=== PATIENT | male | born 1940 | race Caucasian/White ===

== ENCOUNTER 2019-08-12 20:44 | Inpatient (IN) | payer OTHER, MEDICAID ==
[~2019-08-12] VITALS: Ht 175.3 cm; Wt 72.6 kg
[2019-08-12 20:44] VITALS: BP_SYST 108
[~2019-08-12 20:44] MED LIST: ACET-2165 PO; ASCO500T20 PO; BISA10SU61 RC; CRAN450C PO; DOCU-144 PO; HYDR-4272 PO; MEMA5TAB PO; MOM PO; MULT-1117 PO; NA P133E41 RC; SSREG SUBCUT; TAMS0.4C96 PO; VITD2000 PO; ZINC220T4 PO; [UNRECOGNIZED DRUG - CODE] PO
[2019-08-12] MEDS ORDERED: ALBU2.5V7 INH (21:19)
[2019-08-12] MEDS ORDERED: CHOL500013 PO (21:20)
[2019-08-12] MEDS ORDERED: CAT.1 PO (21:21)
[2019-08-12] MEDS ORDERED: DOCU-144 PO (21:23)
[2019-08-12] MEDS ORDERED: BISA10SU61 RC (21:25)
[2019-08-12] MEDS ORDERED: ACET-2634 PO (21:27)
[2019-08-12] MEDS ORDERED: AMIN30LI2 PO (21:29)
[2019-08-12] MEDS ORDERED: GLUC1KIT IM (21:31)
[2019-08-12 22:44] LABS: BASOPHILS # (AUTO) 0.1 K/uL (0.0-0.2); BASOPHILS % (AUTO) 0.8 % (0.0-2.0); EOSINOPHILS # (AUTO) 0.4 K/uL (0.0-0.4); EOSINOPHILS % (AUTO) 3.2 % (0.0-4.0); HEMATOCRIT 38.1 % (36-54); HEMOGLOBIN 12.7 g/dL (14.0-18.0); LYMPHOCYTES # (AUTO) 1.9 K/uL (1.0-5.5); LYMPHOCYTES % (AUTO) 16.7 % (20.5-51.5); MEAN CORPUSCULAR HEMOGLOBIN 29 pg (27-31); MEAN CORPUSCULAR HGB CONC 33 % (32-36); MEAN CORPUSCULAR VOLUME 87 fL (79.0-98.0); MONOCYTES # (AUTO) 0.5 K/uL (0.0-1.0); MONOCYTES % (AUTO) 4.3 % (1.7-9.3); NEUTROPHILS # (AUTO) 8.6 K/uL (1.8-7.7); PLATELET COUNT (AUTO) 278 K/uL (130-430); RED BLOOD CELL COUNT(AUTO) 4.39 MIL/uL (4.2-6.2); WHITE BLOOD COUNT (AUTO) 11.4 K/uL (4.8-10.8)
[2019-08-12 23:15] LABS: ALANINE AMINOTRANSFERASE 13 U/L (12-78); ALBUMIN 3.1 g/dL (3.4-4.8); ANION GAP 8 (5-15); ASPARTATE AMINOTRANSFERASE 13 U/L (10-37); CALCIUM 8.5 mg/dL (8.4-11.0); CHLORIDE 102 mmol/L (98-107); CREATININE 0.72 mg/dL (0.55-1.30); GLUCOSE 99 mg/dL (70-99); POTASSIUM 3.9 mmol/L (3.5-5.1); SODIUM SERUM 137 mmol/L (136-145); TOTAL BILIRUBIN 0.4 mg/dL (0.0-1.0); UREA NITROGEN, BLOOD 21 mg/dL (8-21)
[2019-08-12 23:18] LABS: ALCOHOL, BLOOD < 3 mg/dL (<10)
[2019-08-13] MEDS ORDERED: IPRATROPIUM/ALBUTEROL SULFATE 3 ML AMPUL.NEB (DUONEB) INH ONE (01:15)
[2019-08-13] MEDS ORDERED: methylPREDNISolone SOD SUCC 40 MG/ML VIAL IVP ONE ×2 (01:15→12:00)
--- NOTE | 2019-08-13 02:00 | NUR ---
Patient to ER bed 7 to gown for evaluation. Side rails up.
--- NOTE | 2019-08-13 02:05 | NUR ---
Pt came to the ED for chest xray positive for pneumonia yesterday. Reports he has had a cough, sore throat, and rhinorhea. Denies n/v/d or fever. Denies chest pain. No other complaints/injuries noted. Will cont. to monitor.
--- NOTE | 2019-08-13 02:45 | NUR ---
ER at bedside examining patient.
--- NOTE | 2019-08-13 03:00 | NUR ---
Pt resting comfortably in bed, no signs of acute distress. Will cont. to monitor.
--- NOTE | 2019-08-13 03:30 | NUR ---
Called [facility] for bed, unable to take pt .
[2019-08-13] MEDS ORDERED: methylPREDNISolone SOD SUCC/PF 62.5 MG/ML VIAL IVP ONE (03:45)
[2019-08-13] MEDS ORDERED: methylPREDNISolone SOD SUCC/PF 62.5 MG/ML VIAL ONE (03:47)
--- NOTE | 2019-08-13 04:00 | NUR ---
Pt resting comfortably in bed, no signs of acute distress. Will cont. to monitor.
--- NOTE | 2019-08-13 05:30 | NUR ---
Called [facility] for bed, unable to take pt .
--- NOTE | 2019-08-13 05:50 | NUR ---
Patient will be admitted to care of Dr. Grant. Admitted to Tele unit. Pt is currently a hold. Belongings list completed. Complete and up to date summary report printed. SBAR report to be given at bedside with opportunity for questions.
--- NOTE | 2019-08-13 06:00 | NUR ---
PT resting comfortably in bed with tv on, no signs of acute distress. Will cont. to monitor.
--- NOTE | 2019-08-13 07:18 | NUR ---
Medication reconciliation completed with information provided by patients paperwork. Any prior medication reconciliation on file was reviewed and corrected.
--- NOTE | 2019-08-13 07:30 | NUR ---
Patient diaper changed, rolly care done and PT given urinal. Urine specimen collected and sent to lab.
--- NOTE | 2019-08-13 07:30 | NUR ---
Ramiro frank in [facility] - 08/13/19 at 0824 by SDEDTD Patient diaper & rolly care changed and given urinal.
--- NOTE | 2019-08-13 07:53 | NUR ---
Patient will be admitted to care of Dr. Grant. Admitted to Tele unit. Will go to room 124A. Belongings list completed. Complete and up to date summary report printed. SBAR report to be given at bedside with opportunity for questions. Transfer to Tele via ACLS protocol. Licensed nurse present. IV present no signs or symptoms of infiltration.
--- NOTE | 2019-08-13 08:05 | NUR ---
ADMISSION NOTE Received patient from ER via dany, received report from [facility]ILY [employer]. Patient admitted with diagnosis of COPD EXACERBATION. Patient oriented to hospital routine, call light, toileting and safety-patient verbalized understanding.
[2019-08-13 08:15] VITALS: BP_SYST 107
--- NOTE | 2019-08-13 08:55 | NUR ---
Pulmo consult called: for Dr. Aragon, regarding acute COPD exacerbation, ordered by Dr. Grant, spoke with Shelly at exchange.
[2019-08-13 09:22] LABS: BASOPHILS # (AUTO) 0.1 K/uL (0.0-0.2); BASOPHILS % (AUTO) 0.5 % (0.0-2.0); EOSINOPHILS % (AUTO) 0.2 % (0.0-4.0); HEMATOCRIT 40.3 % (36-54); HEMOGLOBIN 13.6 g/dL (14.0-18.0); LYMPHOCYTES # (AUTO) 0.9 K/uL (1.0-5.5); LYMPHOCYTES % (AUTO) 7.9 % (20.5-51.5); MEAN CORPUSCULAR HEMOGLOBIN 29 pg (27-31); MEAN CORPUSCULAR HGB CONC 34 % (32-36); MEAN CORPUSCULAR VOLUME 87 fL (79.0-98.0); MONOCYTES # (AUTO) 0.1 K/uL (0.0-1.0); MONOCYTES % (AUTO) 0.8 % (1.7-9.3); NEUTROPHILS # (AUTO) 9.8 K/uL (1.8-7.7); NEUTROPHILS % (AUTO) 90.6 % (40.0-70.0); PLATELET COUNT (AUTO) 283 K/uL (130-430); RED BLOOD CELL COUNT(AUTO) 4.66 MIL/uL (4.2-6.2); RED CELL DISTRIBUTION WIDTH 13.9 % (9.0-15.0); WHITE BLOOD COUNT (AUTO) 10.8 K/uL (4.8-10.8)
[2019-08-13 09:31] LABS: ALANINE AMINOTRANSFERASE 18 U/L (12-78); ALBUMIN 3.2 g/dL (3.4-4.8); ANION GAP 9 (5-15); ASPARTATE AMINOTRANSFERASE 12 U/L (10-37); CALCIUM 8.8 mg/dL (8.4-11.0); CHLORIDE 101 mmol/L (98-107); CREATININE 0.77 mg/dL (0.55-1.30); GLUCOSE 124 mg/dL (70-99); POTASSIUM 3.7 mmol/L (3.5-5.1); SODIUM SERUM 137 mmol/L (136-145); TOTAL BILIRUBIN 0.5 mg/dL (0.0-1.0); UREA NITROGEN, BLOOD 20 mg/dL (8-21)
[2019-08-13 09:47] VITALS: BP_SYST 107
--- NOTE | 2019-08-13 09:50 | NUR ---
Note Came to pt's room at 0812am, pt requested RN come in later as pt wanted to eat his breakfast and then answer questions. Vital signs were taken and RN now returned and did admission assessment at this time. Pt had tele unit attached on admission to floor by sec accountant Sai. Pt is forgetful and has history of dementia, sometimes there were gaps of remembering when answering questions on admission assessment. Call light within reach.
[2019-08-13 10:42] LABS: BILIRUBIN,URINE NEGATIVE (NEGATIVE); BLOOD, URINE NEGATIVE (NEGATIVE); CLARITY/URINE CLEAR (CLEAR); COLOR,URINE YELLOW (YELLOW); GLUCOSE,URINE NEGATIVE (NEGATIVE); KETONES,URINE NEGATIVE (NEGATIVE); LEUKOCYTE ESTERASE ,URINE 1+ (NEGATIVE); NITRITE, URINE POSITIVE (NEGATIVE); PROTEIN URINE NEGATIVE (NEGATIVE); UROBILINOGEN,URINE 0.2 (0.2-1.0)
[2019-08-13 11:06] LABS: BACTERIA,URINE MANY /HPF (None Seen); MUCUS,URINE 1+ /LPF (None Seen); RBC,URINE 0-3 /HPF (0-3)
[2019-08-13 12:06] VITALS: BP_SYST 87
--- NOTE | 2019-08-13 13:00 | NUR ---
Note Pt resting in bed, denies any needs at this time. IV in left forearm intact and patent. Tele unit attached and intact. Pt was checked on q1' and PRN all shift. No SOB/resp distress or pain/discomfort noted at this time. Call light within reach. No needs noted at this time.
[2019-08-13] MEDS: IPRATROPIUM/ALBUTEROL SULFATE 3 ML AMPUL.NEB (DUONEB) INH SCH ×2 (13:50→20:06)
[2019-08-13 16:14] VITALS: BP_SYST 118; BP_SYST 133
--- NOTE | 2019-08-13 18:35 | NUR ---
Note Pt was checked on q1' and PRN all shift for needs and care. Pt's tele unit attached and intact all shift. No SOB/resp distress or chest pain/discomfort was noted. No needs noted. Call light within reach. IV in left forearm intact and patent.
--- NOTE | 2019-08-13 19:25 | NUR ---
CHANGE OF SHIFT; PT. AWAKE, ALERT, FORGETFUL. FOLOOWS SIMPLE COMMANDS. ON FALL RISK PRECAUTIONS. CALL LIGHT AT BEDSIDE. WILL ASSESS LATER.
[2019-08-13 20:30] VITALS: BP_SYST 113
--- NOTE | 2019-08-13 20:30 | NUR ---
NOTES: VS checked. moves all extremities but weak. on hall monitor and shows sinus rhythm. skin abrasions, dry on upper arms. both feet very drys skin. IV lock on left forearm. bed alarm on, call light within reach.
[2019-08-13] MEDS: methylPREDNISolone SOD SUCC 40 MG/ML VIAL IVP SCH (21:05)
[2019-08-13] MEDS: LEVOFLOXACIN 500 MG/D5W 100 ML IV SCH ×2 (21:05→23:27)
--- NOTE | 2019-08-13 21:30 | NUR ---
NOTES: due medications given. requesting for coffee. miriam him will bring later and agreed.
--- NOTE | 2019-08-14 00:04 | NUR ---
NOTES: pt. been requesting for coffee and given. pt. incontinent of urine. rolly care done, kept dry. repositioned.IV lock on left forearm.
[2019-08-14 00:30] VITALS: BP_SYST 116
[2019-08-14] MEDS: IPRATROPIUM/ALBUTEROL SULFATE 3 ML AMPUL.NEB (DUONEB) INH SCH ×3 (00:56→20:54)
--- NOTE | 2019-08-14 03:00 | NUR ---
NOTES: pt. checked and sleeping comfortably, bed alarm on. condition observed. continue to monitor.
--- NOTE | 2019-08-14 05:00 | NUR ---
NOTES; colostomy bag drained with soft brown stool, with lots of air. incontinent of urine, able to help turn. continue to monitor and observed. had one episode of HR drop on low 50's for seconds and went back up to 70's.
--- NOTE | 2019-08-14 06:45 | NUR ---
CLOSING NOTES; pt. still sleeping, no distress. IV site patent. colostomy bag with soft brown stool. pt. wearing diaper, does not want to remove, will endorse to day shift. pretty comfortable with his blanket. call light at bedside . on fall risk precautions, bed alarm on.
[2019-08-14 07:41] VITALS: BP_SYST 109
--- NOTE | 2019-08-14 07:41 | NUR ---
Opening note patient resting in bed, a/ox3, reoriented to place, time and event, patient has periods of forgetfulness, patient denies pain, assessment complete, colostomy noted to left abdomen, bag is intact, stoma is 100% pink, IV line is patent and infusing well, educated the patient friction saw operator light system and plan of care, he verbalizes understanding at this time, also educated the patient on use of diapers and potential risk for skin breakdown, he verbalized understanding, and states," I want to use diapers please," patient has no other needs at this time, bed in lowest position, two side rails up, bed alarm on, call light within reach, fall and aspiration precautions in place.
[2019-08-14] MEDS: methylPREDNISolone SOD SUCC 40 MG/ML VIAL IVP SCH (08:31)
--- NOTE | 2019-08-14 08:34 | NUR ---
Medication patient resting in bed, awake, finishing breakfast, aspiration precautions in place, educated the patient on scheduled medication uses and potential side effects, he verbalized understanding, IV line is patent and infusing well, no other needs at this time, continuing to monitor, bed in lowest position, two side rails up, call light within reach, fall and aspiration precautions in place.
--- NOTE | 2019-08-14 10:40 | NUR ---
Nutrition Update Margarito Scale 15 noted. Pt admitted for acute exacerbation of COPD. Diet: 2 gm Na BMI: 22.2 kg/m2 RD to follow per nutrition care standards.
--- NOTE | 2019-08-14 10:47 | NUR ---
RN rounds patient resting in bed, eyes closed, breathing is even and unlabored, no signs of distress, continuing to monitor, bed in lowest position, three side rails up, call light within reach, fall and aspiration precautions in place.
--- NOTE | 2019-08-14 12:00 | NUR ---
DCPA and SS contact: WELL LOGGING MUD ANALYSIS CAPTAIN met with Pt. at bedside for DCPA. Pt. was able to give minimal information, not well oriented, unable to provide any meaningful information. Per collateral with JUAN Rico at [facility], Pt has been a resident in this facility since 09/2017 his own decision maker, not on a conservatorship. Emergency contact is listed as daughter Shelly Hanna . Pt. has [facility] part A and B, and [facility]. PCP is Dr. Grant . Pt. is bed bound, utilizes wheelchair occasionally, full assist with ADLs. Pt. has his bed available at [facility] DCP would be to return to this facility. No SS concern at this time. CM, SS and DCP to remain available as needed.
[2019-08-14 12:28] VITALS: BP_SYST 117
--- NOTE | 2019-08-14 12:40 | NUR ---
RN rounds patient resting in bed, awake, eating lunch, aspiration precautions in place, patient colostomy bag with air, expelled air at this time, colostomy is still intact, patient has no other needs at this time, continuing to monitor, bed in lowest position, three side rails up, bed alarm on, call light within reach, fall and aspiration precautions in place.
--- NOTE | 2019-08-14 13:00 | NUR ---
Dr. Rudy perez informed of need for DVT prophylaxis, MD to put in orders.
--- NOTE | 2019-08-14 14:37 | NUR ---
RN rounds patient resting in bed, denies pain, denies shortness of breath, provided with tissues per his request, no other needs at this time, bed in lowest position, three side rails up, bed alarm on, call light within reach, fall and aspiration precautions in place.
--- NOTE | 2019-08-14 16:20 | NUR ---
RN rounds patient resting in bed, denies pain, denies shortness of breath, no other needs at this time, bed in lowest position, three side rails up, bed alarm on, call light within reach, fall and aspiration precautions in place.
[2019-08-14 16:29] VITALS: BP_SYST 118
--- NOTE | 2019-08-14 18:20 | NUR ---
Closing note patient resting in bed, awake, denies pain, eating dinner, aspiration precautions in place, all needs met, will endorse report NOC shift nurse, bed in lowest position, two side rails up, call light within reach, fall and aspiration precautions in place.
--- NOTE | 2019-08-14 19:06 | NUR ---
CONSULT DR. ZIEGLER ALREADY SEEN THE PT
--- NOTE | 2019-08-14 19:25 | NUR ---
CHANGE OF SHIFT; pt. awake, watching tv. no complaints. no distress. on fall risk precautions, sitting at the edge of the bed when received. call light within reach.
[2019-08-14 20:15] VITALS: BP_SYST 110
--- NOTE | 2019-08-14 20:15 | NUR ---
NOTES: VS checked. moves all extremities, maintain bed rest. IV lock on left forearm. colostomy intact with pasty brownish stool. still wearing diaper per pt. request. cardiac pattern borderline sinus miguel angel/sinus rhythm. bed alarm, fall risk precaution. instructed to call if help needed.
[2019-08-14] MEDS: PREDNISONE 20 MG TABLET PO SCH (20:16)
[2019-08-14] MEDS: LEVOFLOXACIN 500 MG/D5W 100 ML IV SCH (21:43)
--- NOTE | 2019-08-14 22:00 | NUR ---
NOTES: due meds given. repositioned in bed, gets incontinent,rolly care and kept dry, instructed if he could use urinal but pt. is forgetful. pt. needs attended.
[2019-08-15 00:10] VITALS: BP_SYST 100
--- NOTE | 2019-08-15 00:15 | NUR ---
NOTES: pt. sleeping when made rounds. condition observed. bed alarm on.
[2019-08-15] MEDS: IPRATROPIUM/ALBUTEROL SULFATE 3 ML AMPUL.NEB (DUONEB) INH SCH ×3 (01:00→14:10)
--- NOTE | 2019-08-15 03:00 | NUR ---
NOTES: made rounds, pt. sleeping, continue to monitor. on fall risk, bed alarm on.
--- NOTE | 2019-08-15 06:00 | NUR ---
NOTES; pt, been sleeping most of the night. colostomy intact and IV site.
--- NOTE | 2019-08-15 06:45 | NUR ---
CLOSING NOTES; still asleep, in no distress, fall precautions observed. for further care and assistance.will endorse to day shift.
--- NOTE | 2019-08-15 08:00 | NUR ---
SLEEPING WITH NO COMPLAINTS
[2019-08-15] MEDS: PREDNISONE 20 MG TABLET PO SCH ×2 (09:51→21:07)
--- NOTE | 2019-08-15 10:00 | NUR ---
APPETITE FOR BREAKFAST GOOD
[2019-08-15 11:20] VITALS: BP_SYST 144
--- NOTE | 2019-08-15 12:00 | NUR ---
COLOSTOMY FUNCTIONG WITH SMALL AMOUNT OF BROWN STOOL
[2019-08-15 12:15] VITALS: BP_SYST 117
--- NOTE | 2019-08-15 14:00 | NUR ---
DOZING QUIETLY IN BED
--- NOTE | 2019-08-15 16:00 | NUR ---
REMAINS IN SAME CONDITION
[2019-08-15 16:36] VITALS: BP_SYST 121
[2019-08-15 19:45] VITALS: BP_SYST 106
--- NOTE | 2019-08-15 19:45 | NUR ---
INITIAL NOTE AT INITIAL ASSESSMENT, PATIENT IS RESTING IN BED, STABLE, NO SIGNS OF RESPIRATORY DISTRESS. PATIENT VERBALIZES NO PAIN. PLAN OF CARE FOR THE EVENING IS COMMUNICATED WITH THE PATIENT. PATIENT IS SUCCESSFUL IN DEMONSTRATION OF CORRECT USAGE OF CALL LIGHT AT THIS TIME. CALL LIGHT IS PLACED WITHIN REACH OF PATIENT. BED IS LOCKED, ALARMED, AND AT THE LOWEST LEVEL. FALL, SAFETY, ASPIRATION, AND RESPIRATORY PRECAUTIONS WILL BE TAKEN THROUGHOUT THE SHIFT.
[2019-08-15] MEDS: LEVOFLOXACIN 500 MG/D5W 100 ML IV SCH (21:07)
--- NOTE | 2019-08-15 21:45 | NUR ---
HYGIENE CARE NOTE SCHEDULED NIGHT TIME MEDICATIONS ARE GIVEN AT THIS TIME, HYGIENE CARE IS ALSO PROVIDED, FRESH LINENS PROVIDED. PATIENT TOLERATED WELL. CALL LIGHT PLACED WITHIN REACH. BED IS LOCKED, ALARMED, AND AT THE LOWEST LEVEL.
--- NOTE | 2019-08-15 23:45 | NUR ---
NOTE PATIENT IS RESTING IN BED, STABLE, NO SIGNS OF RESPIRATORY DISTRESS. CALL LIGHT IS WITHIN REACH. BED IS LOCKED, ALARMED, AND THE LOWEST LEVEL.
[2019-08-16] VITALS: BP_SYST 115
[2019-08-16] MEDS: IPRATROPIUM/ALBUTEROL SULFATE 3 ML AMPUL.NEB (DUONEB) INH SCH ×4 (00:46→20:52)
--- NOTE | 2019-08-16 01:45 | NUR ---
NOTE PATIENT IS SLEEPING, STABLE, NO SIGNS OF RESPIRATORY DISTRESS. CALL LIGHT IS WITHIN REACH. BED IS LOCKED, ALARMED, AND THE LOWEST LEVEL.
--- NOTE | 2019-08-16 03:45 | NUR ---
NOTE PATIENT IS SLEEPING, STABLE, NO SIGNS OF RESPIRATORY DISTRESS. CALL LIGHT IS WITHIN REACH. BED IS LOCKED, ALARMED, AND THE LOWEST LEVEL.
--- NOTE | 2019-08-16 05:15 | NUR ---
HYGIENE CARE NOTE PATIENT HAD A BOWEL MOVEMENT AND VOID; HYGIENE CARE IS PROVIDED AT THIS TIME, FRESH LINENS PROVIDED. PATIENT TOLERATED WELL. CALL LIGHT PLACED WITHIN REACH. BED IS LOCKED, ALARMED, AND AT THE LOWEST LEVEL.
--- NOTE | 2019-08-16 06:50 | NUR ---
CLOSING NOTE AT THIS TIME, PATIENT IS RESTING IN BED, STABLE, NO SIGNS OF RESPIRATORY DISTRESS. CALL LIGHT IS WITHIN REACH. BED IS LOCKED, AND AT THE LOWEST LEVEL. FALL, SAFETY, AND RESPIRATORY PRECAUTIONS HAVE BEEN IN PLACE THROUGHOUT THE NIGHT. WILL CONTINUE TO MONITOR UNTIL SHIFT REPORT IS GIVEN AT BEDSIDE TO AM NURSE.
[2019-08-16 07:55] VITALS: BP_SYST 98
--- NOTE | 2019-08-16 08:00 | NUR ---
Note Pt sitting on side of bed eating his breakfast. Tele unit attached and intact at this time. LLQ colostomy intact and draining. IV in left forearm intact and patent at this time. No SOB/resp distress or and pain/discomfort noted at this time. Pt denies any needs at this time. Call light within reach.
[2019-08-16] MEDS: PREDNISONE 20 MG TABLET PO SCH ×2 (08:52→20:35)
[2019-08-16 09:23] VITALS: BP_SYST 98
--- NOTE | 2019-08-16 12:00 | NUR ---
Note Pt sitting on side of bed eating his lunch. Pt denies any needs at this time. Call light within reach.
[2019-08-16 12:06] VITALS: BP_SYST 99
[2019-08-16] MEDS ORDERED: ALBUTEROL SULFATE 0.083% 2.5 MG/3 ML VIAL.NEB INH PRN (12:15)
--- NOTE | 2019-08-16 16:00 | NUR ---
Note Pt has been turning and moving in bed all shift for comfort and for meals independently. Pt denies any needs at this time. Call light within reach.
[2019-08-16 16:17] VITALS: BP_SYST 101
--- NOTE | 2019-08-16 18:20 | NUR ---
Note Pt sitting on side of bed eating his dinner. Tele unit attached and intact. Pt was checked on q1' and PRN all shift for needs and care. Pt's IV in left forearm intact and patent. No SOB/resp distress or pain/discomfort was noted. No needs noted. Call light within reach.
[2019-08-16 19:45] VITALS: BP_SYST 115
[2019-08-16] MEDS: MEMANTINE HCL 5 MG TABLET PO SCH (20:35)
[2019-08-16] MEDS: LEVOFLOXACIN 500 MG/D5W 100 ML IV SCH (20:36)
[2019-08-16] MEDS: ACETAMINOPHEN 500 MG TABLET PO PRN (20:42)
--- NOTE | 2019-08-16 23:45 | NUR ---
NOTE PATIENT IS RESTING IN BED, STABLE, NO SIGNS OF RESPIRATORY DISTRESS. CALL LIGHT IS WITHIN REACH. BED IS LOCKED, ALARMED, AND THE LOWEST LEVEL.
[2019-08-17] MEDS: IPRATROPIUM/ALBUTEROL SULFATE 3 ML AMPUL.NEB (DUONEB) INH SCH ×4 (01:42→20:29)
--- NOTE | 2019-08-17 01:45 | NUR ---
NOTE PATIENT IS SLEEPING, STABLE, NO SIGNS OF RESPIRATORY DISTRESS. CALL LIGHT IS WITHIN REACH. BED IS LOCKED, ALARMED, AND THE LOWEST LEVEL.
--- NOTE | 2019-08-17 03:45 | NUR ---
NOTE PATIENT IS SLEEPING, STABLE, NO SIGNS OF RESPIRATORY DISTRESS. CALL LIGHT IS WITHIN REACH. BED IS LOCKED, ALARMED, AND THE LOWEST LEVEL.
--- NOTE | 2019-08-17 05:05 | NUR ---
HYGIENE CARE NOTE HYGIENE CARE IS PROVIDED AT THIS TIME, FRESH LINENS GIVEN. PATIENT TOLERATED WELL. CALL LIGHT PLACED WITHIN REACH. BED IS LOCKED, ALARMED, AND AT THE LOWEST LEVEL.
--- NOTE | 2019-08-17 06:00 | NUR ---
CLOSING NOTE NO CHANGES. PATIENT SLEPT WELL THROUGHOUT THE SHIFT. AT THIS TIME, PATIENT IS RESTING IN BED, STABLE, NO SIGNS OF RESPIRATORY DISTRESS. CALL LIGHT IS WITHIN REACH. BED IS LOCKED, AND AT THE LOWEST LEVEL. FALL, SAFETY, AND RESPIRATORY PRECAUTIONS HAVE BEEN IN PLACE THROUGHOUT THE NIGHT. WILL CONTINUE TO MONITOR UNTIL SHIFT REPORT IS GIVEN AT BEDSIDE TO AM NURSE.
--- NOTE | 2019-08-17 07:35 | NUR ---
INITIAL NOTE PT RESTING, NO ACUTE DISTRESS NOTED, BREATHING EVEN AND UNLABORED. IV SALINE LOCKED. CALL LIGHT WITHIN REACH, BED IN LOW AND LOCKED POSITION WITH BED ALARM ON.
[2019-08-17] MEDS: PREDNISONE 20 MG TABLET PO SCH ×2 (08:45→20:38)
[2019-08-17] MEDS: DOCUSATE SODIUM 100 MG CAPSULE PO SCH (08:45)
[2019-08-17] MEDS: TAMSULOSIN HCL 0.4 MG CAP PO SCH (08:45)
--- NOTE | 2019-08-17 09:35 | NUR ---
RN ROUNDS PT RESTING, NO ACUTE DISTRESS NOTED, BREATHING EVEN AND UNLABORED.
--- NOTE | 2019-08-17 11:30 | NUR ---
CHANGED COLOSTOMY BAG BAG RIPPED, CLEANED PT, CHANGED BAG. PT TOLERATED WELL.
[2019-08-17 12:00] VITALS: BP_SYST 102
--- NOTE | 2019-08-17 13:30 | NUR ---
RN ROUNDS PT SITTING UP AT EDGE OF BED EATING LUNCH. NO CHANGE IN ASSESSMENT.
--- NOTE | 2019-08-17 15:38 | NUR ---
RN ROUNDS PT RESTING, NO ACUTE DISTRESS NOTED, BREATHING EVEN AND UNLABORED.
[2019-08-17 16:23] VITALS: BP_SYST 111
--- NOTE | 2019-08-17 17:30 | NUR ---
RN ROUNDS PT RESTING IN BED, DENIES ANY SOB. PT ON ROOM AIR, TOLERATING WELL. WILL CONTINUE TO MONITOR.
--- NOTE | 2019-08-17 18:38 | NUR ---
CLOSING NOTE PT SITTING AT EDGE OF BED EATING DINNER. IV SALINE LOCKED. DENIES ANY PAIN OR DISCOMFORT. CALL LIGHT WITHIN REACH, BED IN LOW AND LOCKED POSITION WITH BED ALARM ON. ALL NEEDS MET THROUGHOUT SHIFT. WILL CONTINUE TO MONITOR UNTIL PT CARE IS ENDORSED TO FOLDING MACHINE OPERATOR RN.
[2019-08-17 19:45] VITALS: BP_SYST 131
[2019-08-17] MEDS: LEVOFLOXACIN 500 MG/D5W 100 ML IV SCH (20:38)
[2019-08-17] MEDS: MEMANTINE HCL 5 MG TABLET PO SCH (20:38)
[2019-08-17] MEDS: ACETAMINOPHEN 500 MG TABLET PO PRN (20:47)
--- NOTE | 2019-08-17 23:45 | NUR ---
NOTE PATIENT IS RESTING IN BED, STABLE, NO SIGNS OF RESPIRATORY DISTRESS. CALL LIGHT IS WITHIN REACH. BED IS LOCKED, ALARMED, AND THE LOWEST LEVEL.
[2019-08-18] VITALS: BP_SYST 112
[2019-08-18] MEDS: IPRATROPIUM/ALBUTEROL SULFATE 3 ML AMPUL.NEB (DUONEB) INH SCH ×3 (01:00→20:27)
--- NOTE | 2019-08-18 01:45 | NUR ---
HYGIENE CARE NOTE HYGIENE CARE IS ALSO PROVIDED AT THIS TIME, FRESH LINENS GIVEN. PATIENT TOLERATED WELL. CALL LIGHT PLACED WITHIN REACH. BED IS LOCKED, ALARMED, AND AT THE LOWEST LEVEL.
--- NOTE | 2019-08-18 05:05 | NUR ---
NOTE PATIENT IS SLEEPING, STABLE, NO SIGNS OF RESPIRATORY DISTRESS. CALL LIGHT IS WITHIN REACH. BED IS LOCKED, ALARMED, AND THE LOWEST LEVEL.
--- NOTE | 2019-08-18 07:37 | NUR ---
INITIAL NOTE PT RECEIVING BREATHING TREATMENT. PT AWAKE WATCHING TELEVISION. NO ACUTE DISTRESS NOTED. IV SALINE LOCKED. CALL LIGHT WITHIN REACH, BED IN LOW AND LOCKED POSITION WITH BED ALARM ON.
[2019-08-18] MEDS: PREDNISONE 20 MG TABLET PO SCH (09:14)
[2019-08-18] MEDS: DOCUSATE SODIUM 100 MG CAPSULE PO SCH (09:15)
[2019-08-18] MEDS: TAMSULOSIN HCL 0.4 MG CAP PO SCH (09:15)
--- NOTE | 2019-08-18 09:35 | NUR ---
RN ROUNDS EMPTIED OUT COLOSTOMY BAG. STOOL SOFT AND BROWN. PT TOLERATED WELL.
[2019-08-18] MEDS ORDERED: PREDNISONE 20 MG TABLET PO SCH (10:15)
[2019-08-18 11:06] VITALS: BP_SYST 105
--- NOTE | 2019-08-18 11:30 | NUR ---
RN ROUNDS PT RESTING, NO ACUTE DISTRESS NOTED, BREATHING EVEN AND UNLABORED WILL CONTINUE TO MONITOR.
--- NOTE | 2019-08-18 13:40 | NUR ---
RN ROUNDS PT AWAKE, WATCHING TELEVISION, NO ACUTE DISTRESS NOTED, NO CHANGE IN ASSESSMENT.
--- NOTE | 2019-08-18 14:06 | NUR ---
Dietitian Recommendations *Recommend CCHO 2gm Na diet. *Monitor BG levels. Please see Nutritional Assessment for details. RENE, RD
[2019-08-18 15:03] VITALS: BP_SYST 123
--- NOTE | 2019-08-18 16:00 | NUR ---
RN ROUNDS PT RESTING, NO ACUTE DISTRESS NOTED, BREATHING EVEN AND UNLABORED.
--- NOTE | 2019-08-18 18:30 | NUR ---
CLOSING NOTE PT SITTING AT EDGE OF BED EATING DINNER. PT DENIES ANY PAIN OR DISCOMFORT. IV SALINE LOCKED. CALL LIGHT WITHIN REACH, BED IN LOW AND LOCKED POSITION WITH BED ALARM ON. ALL NEEDS MET THROUGH OUT SHIFT. WILL CONTINUE TO MONITOR UNTIL PT CARE IS ENDORSED TO KITCHEN OPERATOR RN.
--- NOTE | 2019-08-18 20:00 | NUR ---
Pt received resting in bed comfortably awoke alert, Tamazight speaking, denies having any pain. Lungs with wheezing and stridor. Abdomen left lateral colotomy bag, with form soft brown bowel.
[2019-08-18] MEDS: LEVOFLOXACIN 500 MG/D5W 100 ML IV SCH (23:27)
[2019-08-18] MEDS: MEMANTINE HCL 5 MG TABLET PO SCH (23:27)
--- NOTE | 2019-08-18 23:30 | NUR ---
Pt incontinent said he was wet and wanted to be changed and was changed vital signs stable. Pt was asked if he needed any thing else, before leaving his room, he said just a warn blanket, and did receive.
[2019-08-19 00:08] VITALS: BP_SYST 104
[2019-08-19 00:34] VITALS: BP_SYST 121
[2019-08-19] MEDS: IPRATROPIUM/ALBUTEROL SULFATE 3 ML AMPUL.NEB (DUONEB) INH SCH ×3 (01:00→13:40)
--- NOTE | 2019-08-19 04:00 | NUR ---
Pt remain resting in bed comfortably with eyes closed respirations even. Pt's bed is in low position with wheels locked call light in reach.
--- NOTE | 2019-08-19 06:34 | NUR ---
Pt remain resting in bed stable, A.M. care done, Colostomy bag changed. Endorsed to day shift staff Rosey. Addendum: 08/19/19 at 0741 by Bertha deportation officer Nurse name Kamla Currie
--- NOTE | 2019-08-19 08:00 | NUR ---
received awake and oriented and in no c/o discomfort.vss resp even and unlabored set up for breakfast.on ra and sats 98%.colostomy intact with small amt brown drainage.lfa sl patent and intact.tele sr.continue to monitor call santizo in place
[2019-08-19] MEDS ORDERED: PREDNISONE 20 MG TABLET PO SCH (09:00)
[2019-08-19] MEDS: DOCUSATE SODIUM 100 MG CAPSULE PO SCH (11:22)
[2019-08-19] MEDS: TAMSULOSIN HCL 0.4 MG CAP PO SCH (11:22)
[2019-08-19 12:38] VITALS: BP_SYST 101
--- NOTE | 2019-08-19 12:42 | NUR ---
Discharge Planning: DCP faxed pt referral to [facility] (f [phone] p [phone]) DCP to follow up Addendum: 08/19/19 at 1454 by Sherly Hogan DP [facility] (f [phone] p [phone]), [facility] ([phone]) Will Call. Patient packet taken to nurse station.
[2019-08-19 14:15] VITALS: BP_SYST 101
[2019-08-19 15:00] VITALS: BP_SYST 118
--- NOTE | 2019-08-19 15:36 | NUR ---
REPORT CALLED TO JUNAID MARTINEZ AT [facility].
[2019-08-19 16:46] VITALS: BP_SYST 121
--- NOTE | 2019-08-19 17:19 | NUR ---
taken for tx to snf by dany pt in no distress.vss.belongings sent with pt.
== END 2019-08-19 17:20 | DRG 178 ==
LOC: SED 20:44 → STU 08-13 05:49
PROVIDERS: ADMIT Internal Medicine; ATTEND Internal Medicine
DX: J69.0 Pneumonitis due to inhalation of food and vomit (principal); J44.0 Chronic obstructive pulmonary disease with (acute) lower respiratory infection; N39.0 Urinary tract infection, site not specified; I13.0 Hypertensive heart and chronic kidney disease with heart failure and stage 1 through stage 4 chronic kidney disease, or unspecified chronic kidney disease; J44.1 Chronic obstructive pulmonary disease with (acute) exacerbation; I50.9 Heart failure, unspecified; L03.019 Cellulitis of unspecified finger; F03.90 Unspecified dementia, unspecified severity, without behavioral disturbance, psychotic disturbance, mood disturbance, and anxiety; R91.1 Solitary pulmonary nodule; N18.9 Chronic kidney disease, unspecified; E11.22 Type 2 diabetes mellitus with diabetic chronic kidney disease; I48.91 Unspecified atrial fibrillation; J20.9 Acute bronchitis, unspecified; N40.0 Benign prostatic hyperplasia without lower urinary tract symptoms; Z93.3 Colostomy status; Z79.899 Other long term (current) drug therapy; Z87.891 Personal history of nicotine dependence
CPT/HCPCS: 36415; 71045; 80053; 81000-TC; 83605; 83880; 84484; 85025; 86710; 87040-TC; 87081; 87086; 93005; 94640; 94760; 96365; 96375; 99285; G0378; G0482; J1030; J1956; J2930; J7512; J7620

== ENCOUNTER 2020-05-08 20:19 | Inpatient (IN) | payer OTHER, MEDICAID, SELFPAY ==
[~2020-05-08] VITALS: Ht 175.3 cm; Wt 77.6 kg
[~2020-05-08 20:19] MED LIST changes: -ACET-2165 PO; +ACET-2634 PO; +ACET325T PO; +ALBU2.5V7 INH; +AMIN30LI2 PO; -ASCO500T20 PO; +CAT.1 PO; +CHOL500013 PO; -CRAN450C PO; +GLUC1KIT IM; -VITD2000 PO; -ZINC220T4 PO; -[UNRECOGNIZED DRUG - CODE] PO
[2020-05-08 20:23] VITALS: BP_SYST 99
--- NOTE | 2020-05-08 20:26 | NUR ---
Placed in room 7 . Placed on mushroom cutter, blood pressure machine and pulse oximeter. To gown for exam. Side rails up. Report given to Alberto MARTINEZ.
--- NOTE | 2020-05-08 20:27 | NUR ---
Patient was BIB by [facility] from [facility] for elevated D-dimer. Pt has colotomy in place. Pt is AAO to person, time and place. Pt does have hx of dementia. Pt has tested positive for Covid 01/15/2020. hx of TIA. Pt denies pain, N/V or fever. No other injuries/complaints per patient at this time.
--- NOTE | 2020-05-08 20:30 | NUR ---
ER Dr. Casey at bedside examining patient.
--- NOTE | 2020-05-08 20:50 | NUR ---
patient was given urinal. pt was able to urinate. Specimen collected and sent to lab.
[2020-05-08 21:25] LABS: BASOPHILS # (AUTO) 0.1 K/uL (0.0-0.2); BASOPHILS % (AUTO) 1.4 % (0.0-2.0); EOSINOPHILS # (AUTO) 0.3 K/uL (0.0-0.4); EOSINOPHILS % (AUTO) 3.2 % (0.0-4.0); HEMATOCRIT 44.2 % (36-54); HEMOGLOBIN 15.1 g/dL (14.0-18.0); LYMPHOCYTES # (AUTO) 2.4 K/uL (1.0-5.5); LYMPHOCYTES % (AUTO) 23.3 % (20.5-51.5); MEAN CORPUSCULAR HEMOGLOBIN 29 pg (27-31); MEAN CORPUSCULAR HGB CONC 34 % (32-36); MEAN CORPUSCULAR VOLUME 84 fL (79.0-98.0); MONOCYTES # (AUTO) 0.7 K/uL (0.0-1.0); MONOCYTES % (AUTO) 6.6 % (1.7-9.3); NEUTROPHILS # (AUTO) 6.9 K/uL (1.8-7.7); NEUTROPHILS % (AUTO) 65.5 % (40.0-70.0); PLATELET COUNT (AUTO) 378 K/uL (130-430); RED BLOOD CELL COUNT(AUTO) 5.23 MIL/uL (4.2-6.2); RED CELL DISTRIBUTION WIDTH 14.4 % (9.0-15.0); WHITE BLOOD COUNT (AUTO) 10.5 K/uL (4.8-10.8)
[2020-05-08 21:26] LABS: BILIRUBIN,URINE NEGATIVE (NEGATIVE); BLOOD, URINE 3+ (NEGATIVE); CLARITY/URINE CLEAR (CLEAR); COLOR,URINE YELLOW (YELLOW); GLUCOSE,URINE NEGATIVE (NEGATIVE); KETONES,URINE NEGATIVE (NEGATIVE); LEUKOCYTE ESTERASE ,URINE 3+ (NEGATIVE); NITRITE, URINE POSITIVE (NEGATIVE); PH,URINE 6.5 (5.0-8.0); PROTEIN URINE TRACE (NEGATIVE); UROBILINOGEN,URINE 0.2 (0.2-1.0)
[2020-05-08 21:28] LABS: ANION GAP 13 (5-15); CALCIUM 8.9 mg/dL (8.4-11.0); CHLORIDE 98 mmol/L (98-107); CREATININE 1.07 mg/dL (0.55-1.30); GLUCOSE 118 mg/dL (70-99); SODIUM SERUM 133 mmol/L (136-145); UREA NITROGEN, BLOOD 35 mg/dL (8-21)
[2020-05-08 21:33] LABS: ALANINE AMINOTRANSFERASE 22 U/L (12-78); ALBUMIN 2.9 g/dL (3.4-4.8); ASPARTATE AMINOTRANSFERASE 16 U/L (10-37); TOTAL BILIRUBIN 0.3 mg/dL (0.0-1.0)
[2020-05-08 21:34] LABS: POTASSIUM 2.6 mmol/L (3.5-5.1)
--- NOTE | 2020-05-08 21:43 | NUR ---
CRITICAL RESULTS POTASSIUM 2.6 MD NOTIFIED
[2020-05-08] MEDS ORDERED: HYDR-4274 PO (22:07)
--- NOTE | 2020-05-08 22:08 | NUR ---
Medication reconciliation completed with information provided by [facility]. Any prior medication reconciliation on file was reviewed and corrected.
[2020-05-08 22:13] LABS: WBC,URINE 20-50 /HPF (0-3)
[2020-05-08 22:15] LABS: BACTERIA,URINE MODERATE /HPF (None Seen)
[2020-05-08] MEDS ORDERED: POTASSIUM CHLORIDE 20 MEQ TAB.PRT.SR PO ONE (22:15)
[2020-05-08] MEDS ORDERED: KCL 20 mEq in NS 1000 mL 1,000 ML IV ONE (22:15)
[2020-05-08] MEDS ORDERED: cefTRIAXone 1 GM in D5W 50 ML IV ONE (22:15)
[2020-05-08] MEDS ORDERED: cefTRIAXone 1 GM VIAL ONE (22:46)
--- NOTE | 2020-05-08 23:00 | NUR ---
Patient's colostomy tube was drained. Pt tolerated well. NO evidence of erythema or discharge to site. Surrounding skin is clean and dry. Pt placed in comfortable position. Will continue to monitor.
[2020-05-08] MEDS ORDERED: NACL 0.9% 1,000 ML IV ONE ×2 (23:15→23:30)
[2020-05-08] MEDS ORDERED: KCL 20 mEq in 100 mL (PREMIX) 100 ML IV ONE ×2 (23:19→23:30)
[2020-05-08] MEDS ORDERED: INSULIN REGULAR, HUMAN 100 UNITS/ML, 10 ML VIAL (humuLIN R) SUBCUT PRN (23:45)
[2020-05-09] MEDS ORDERED: MAG HYDROX/AL HYDROX/SIMETH 30 ML, DICYCLOMINE HCL 20 MG, LIDOCAINE VISCOUS 2% 15ML (PO... PO ONE ×3 (00:15)
--- NOTE | 2020-05-09 00:48 | NUR ---
Patient will be admitted to care of Dr. Grant. Admitted to Telemetry unit. Will go to room 104B. Belongings list completed. Complete and up to date summary report printed. SBAR report to be given at bedside with opportunity for questions.
--- NOTE | 2020-05-09 00:49 | NUR ---
Transfer to Telemetry via ACLS protocol. Licensed nurse present. IV present no signs or symptoms of infiltration.
--- NOTE | 2020-05-09 01:13 | NUR ---
ADMISSION NOTE Received patient from ER via dany, received report from JUAN STREETER. Patient admitted with diagnosis of HYPOKALEMIA,UTI. Patient oriented to hospital routine, call light, toileting and safety-patient verbalized understanding.
[2020-05-09 01:14] VITALS: BP_SYST 106
--- NOTE | 2020-05-09 01:20 | NUR ---
INITIAL NOTES PATIENT IS STABLE AND LAYING IN BED. NO S/S OF RESPIRATORY DISTRESS NOTES. CALL LIGHT IN REACH. PATIENT UNSUCCESSFULLY DEMONSTRATES USAGE OF CALL LIGHT. BED IS LOCKED, ALARMED, AND AT THE LOWEST POSITION. FALL, SAFETY, ASPIRATION, AND RESPIRATORY PRECAUTION WILL BE IN PLACE THROUGHOUT THE SHIFT. PLAN OF CARE IS DISCUSSED WITH PATIENT.
--- NOTE | 2020-05-09 01:44 | NUR ---
CONSULT: CONSULT CALLED FOR DR. ELPIDIO COURTNEY I SPOKE WITH ANTWON GAITAN REASON FOR CONSULT: UTI REQUESTING CONSULT: DR. BARRON PERFORMANCE TESTER PHONE NUMBER: [phone]
--- NOTE | 2020-05-09 03:20 | NUR ---
PATIENT IS STABLE AND SLEEPING IN BED. NO S/S OF RESPIRATORY DISTRESS NOTED. CALL LIGHT IN REACH.
--- NOTE | 2020-05-09 04:19 | NUR ---
PATIENT IS STABLE AND SLEEPING IN BED. NO S/S OF RESPIRATORY DISTRESS NOTED. CALL LIGHT IN REACH.
[2020-05-09 05:16] LABS: ANION GAP 11 (5-15); CALCIUM 8.5 mg/dL (8.4-11.0); CHLORIDE 98 mmol/L (98-107); CREATININE 0.84 mg/dL (0.55-1.30); GLUCOSE 108 mg/dL (70-99); SODIUM SERUM 129 mmol/L (136-145); UREA NITROGEN, BLOOD 27 mg/dL (8-21)
[2020-05-09 05:31] LABS: ALANINE AMINOTRANSFERASE 24 U/L (12-78); ALBUMIN 2.7 g/dL (3.4-4.8); ASPARTATE AMINOTRANSFERASE 17 U/L (10-37); CHOLESTEROL 156 mg/dL (<200); HDL CHOLESTEROL 24 mg/dL (>45); LDL CHOLESTEROL 112 mg/dL (<100); THYROID STIMULATING HORMONE 0.74 uIu/mL (0.34-4.82); TOTAL BILIRUBIN 0.3 mg/dL (0.0-1.0); TRIGLYCERIDES 132 mg/dL (30-150)
[2020-05-09 05:34] LABS: POTASSIUM 2.6 mmol/L (3.5-5.1)
--- NOTE | 2020-05-09 05:55 | NUR ---
HIGH ALERT NOTE: Called Dr. BARRON back at [phone] identified within the medical roster to verify physician authenticity. MD ORDERED 40 MEQ PO ONCE AND 40 MEQ K-RIDER ONCE.
[2020-05-09] MEDS ORDERED: POTASSIUM CHLORIDE 40 MEQ in NS 250 ML IV ONE (06:00)
[2020-05-09] MEDS ORDERED: POTASSIUM CHLORIDE 20 MEQ TAB.PRT.SR PO ONE (06:00)
[2020-05-09 06:12] LABS: BASOPHILS # (AUTO) 0.2 K/uL (0.0-0.2); BASOPHILS % (AUTO) 2.3 % (0.0-2.0); EOSINOPHILS # (AUTO) 0.5 K/uL (0.0-0.4); EOSINOPHILS % (AUTO) 5.3 % (0.0-4.0); HEMATOCRIT 43.2 % (36-54); HEMOGLOBIN 14.6 g/dL (14.0-18.0); LYMPHOCYTES # (AUTO) 1.6 K/uL (1.0-5.5); LYMPHOCYTES % (AUTO) 15.6 % (20.5-51.5); MEAN CORPUSCULAR HEMOGLOBIN 29 pg (27-31); MEAN CORPUSCULAR HGB CONC 34 % (32-36); MEAN CORPUSCULAR VOLUME 85 fL (79.0-98.0); MONOCYTES # (AUTO) 0.4 K/uL (0.0-1.0); MONOCYTES % (AUTO) 3.5 % (1.7-9.3); NEUTROPHILS # (AUTO) 7.4 K/uL (1.8-7.7); NEUTROPHILS % (AUTO) 73.3 % (40.0-70.0); PLATELET COUNT (AUTO) 359 K/uL (130-430); RED BLOOD CELL COUNT(AUTO) 5.08 MIL/uL (4.2-6.2); RED CELL DISTRIBUTION WIDTH 14.1 % (9.0-15.0); WHITE BLOOD COUNT (AUTO) 10.1 K/uL (4.8-10.8)
[2020-05-09] MEDS ORDERED: POTASSIUM CHLORIDE 20 MEQ in NS 250 ML IV ONE ×2 (06:15→10:15)
[2020-05-09] MEDS ORDERED: KCL 20 mEq in 100 mL (PREMIX) 100 ML IV ONE ×2 (06:30→08:30)
--- NOTE | 2020-05-09 07:33 | NUR ---
CLOSING NOTES PATIENT IS STABLE AND LAYING IN BED. NO S/S OF RESPIRATORY DISTRESS. CALL LIGHT IN REACH. SBAR REPORT ENDORSED TO AM NURSE BY BEDSIDE.
--- NOTE | 2020-05-09 07:40 | NUR ---
Opening Notes Patient is awake, alert and oriented x2. Patient is noted to be confused and agitated. Remains on bed rest. No resp distress noted. Breathing is even and unlabored. Patient denies any pain at this time. Colostomy bag on left lower abdomen is leaking. Emptied out 350 cc of loose stool. Patient was cleaned, left dry and repositioned with pillows. Given new linens. IV site on left AC, 20 gauge intact at this time, saline lock. Flushing well. No signs of infiltration at this time. KCl 20 mEq IVPB infusing at this time, no c/o burning at IV site. All needs met at this time. Safety and fall precautions in place. Call light within reach. Bed in lowest position, alarm on, locked. Will continue to monitor.
[2020-05-09 08:00] VITALS: BP_SYST 123
--- NOTE | 2020-05-09 10:00 | NUR ---
Notes Patient is asleep in bed at this time. No resp distress noted. Breathing is even and unlabored. Second KCl 20 mEq IVPB infusing at this time. No signs of pain at this time. Will continue to monitor.
--- NOTE | 2020-05-09 11:30 | NUR ---
Blood Sugar Pts BS is noted at 98 mg/dL. Per sliding scale, no needed coverage at this time. Will continue to monitor.
[2020-05-09 12:00] VITALS: BP_SYST 121
--- NOTE | 2020-05-09 12:00 | NUR ---
Notes/Changed Colostomy Bag Patient is laying in bed, resting. Colostomy bag is leaking. Cleaned site and applied a brand new bag. Patient tolerated dressing change well., No resp distress noted. Breathing is even and unlabored. Denies any pain at this time. Will continue to monitor.
--- NOTE | 2020-05-09 14:25 | NUR ---
Notes Patient is awake and sitting up in bed. No resp distress noted. Breathing is even and unlabored. Denies any pain at this time. Patient is incontinent, cleaned and left dry. No needs at this time. Will continue to monitor.
--- NOTE | 2020-05-09 16:16 | NUR ---
Notes Patient is sleeping in bed. No resp distress. No signs of pain at this time. Colostomy bag intact at this time, no leaking. Will continue to monitor.
[2020-05-09 17:12] VITALS: BP_SYST 127
--- NOTE | 2020-05-09 17:17 | NUR ---
Blood Sugar Pts BS is noted at 93 mg/dL. Per sliding scale, no needed coverage at this time. Will continue to monitor.
--- NOTE | 2020-05-09 18:29 | NUR ---
Closing Notes Patient is awake, alert and oriented x3. Pt is sitting at the edge of his bed and eating dinner. Pt is independent with eating, set up is only needed. No resp distress noted. Breathing is even and unlabored. Denies any pain at this time. IV site on left AC, 20 gauge intact at this time, saline lock. Emptied out colostomy bag on left lower abdomen, emptied out 250 cc of loose stool. No leaking at this time. All needs met at this time. Safety and fall precautions in place. Call light within reach. Bed in lowest position, alarm on, locked. Will continue to monitor.
[2020-05-09 20:00] VITALS: BP_SYST 106
--- NOTE | 2020-05-09 20:00 | NUR ---
OPENING NOTE SBAR REPORT RECEIVED FROM RN. CARE ASSUMED. PT LAYING IN BED. PT ON ROOM AIR. PT ANO X3. NO SIGNS OR SYMPTOMS OF DISTRESS NOTED. PT ON ROOM AIR. O2 SATURATION 98%. PT SINUS RHYTHM ON MONITOR. PT HAS 20G TO LEFT AC TKO. RADIAL AND PEDAL PULSES NORMAL. ABDOMEN SOFT NONDISTENDED. COLOSTOMY BAG TO LEFT SIDED ABDOMEN. GREEN LIQUID STOOL IN COLOSTOMY BAG. PT INCONTINENT OF URINE. SKIN INTACT. BED LOCKED IN LOWEST POSITION. SAFETY PRECAUTIONS IN PLACE. CALL LIGHT WITHIN REACH. WILL CONTINUE TO MONITOR.
[2020-05-09] MEDS: cefTRIAXone 1 GM in D5W 50 ML IV SCH (20:59)
--- NOTE | 2020-05-10 | NUR ---
UPDATE PT SLEEPING. NO SIGNS AND SYMPTOMS OF DISTRESS NOTED. WILL CONTINUE TO MONITOR.
[2020-05-10 00:08] VITALS: BP_SYST 104
--- NOTE | 2020-05-10 04:00 | NUR ---
UPDATE PT SLEEPING. NO SIGNS AND SYMPTOMS OF DISTRESS NOTED. WILL CONTINUE TO MONITOR.
--- NOTE | 2020-05-10 07:22 | NUR ---
Nutrition Update Margarito Scale 13 noted. Pt admitted for Hypokalemia, UTI Diet: [facility] BMI: 25.3 kg/m2 RD to follow per nutrition care standards.
--- NOTE | 2020-05-10 07:30 | NUR ---
CLOSING NOTE PT LAYING IN BED. NO SIGNS OR SYMPTOMS OF DISTRESS NOTED. SBAR REPORT GIVEN MARS RN. CARE ENDORSED.
--- NOTE | 2020-05-10 07:30 | NUR ---
Opening Note patient in bed resting, a/o x 3, reoriented patient to time, no distress noted, respirations even and unlabored, IV live is patent and infusing well, assessment complete, safety precautions put in place, fall and aspiration precautions put in place, bed locked and at low position, call light within reach, will monitor patient for any changes.
[2020-05-10 07:52] VITALS: BP_SYST 113
--- NOTE | 2020-05-10 09:45 | NUR ---
RN Rounds patient in bed resting, no signs of distress noted, respirations even and unlabored, no other needs at this time, safety measures maintained, bed locked and at low position, call light within reach, will continue to monitor patient for any changes.
--- NOTE | 2020-05-10 11:50 | NUR ---
RN Rounds patient in bed resting, colostomy bag is intact, drained contents from bag, patient tolerated well, will continue to monitor patient for any changes, safety measures maintained.
[2020-05-10 12:38] VITALS: BP_SYST 105
--- NOTE | 2020-05-10 13:45 | NUR ---
RN Rounds patient resting in bed, no signs of distress noted, respirations even and unlabored, safety measures maintained, will continue to monitor patient.
[2020-05-10] MEDS ORDERED: ACETAMINOPHEN 325 MG TABLET PO PRN (15:00)
[2020-05-10] MEDS ORDERED: MILK OF MAGNESIA 30 ML UDC PO PRN (15:00)
[2020-05-10] MEDS ORDERED: ACETAMINOPHEN 500 MG TABLET PO PRN (15:00)
[2020-05-10] MEDS ORDERED: HYDROcodone/ACETAMIN 10-325 MG TAB PO PRN (15:00)
--- NOTE | 2020-05-10 15:15 | NUR ---
Colostomy bag maintenance patient in bed awake and alert, drained colostomy bad, patient tolerated well, no other needs at this time, will continue to monitor patient, safety measures maintained, bed locked and at low position, call light within reach.
[2020-05-10 16:09] VITALS: BP_SYST 103
--- NOTE | 2020-05-10 17:54 | NUR ---
RN Rounds patient in bed awake and alert, accuchecks done, patient tolerated well, no insulin required, safety measures maintained.
--- NOTE | 2020-05-10 19:00 | NUR ---
Closing Note patient in bed resting, awake and alert, no signs of distress noted, safety measures maintained through out shift, will endorse patient care to oncoming slot shift manager nurse.
[2020-05-10 20:10] VITALS: BP_SYST 94
--- NOTE | 2020-05-10 20:10 | NUR ---
Opening notes Pt alert, awake, oriented , no s/s distress noted. VSS. Pt given sandwiches per pt request. HOB elevated. L abd colostomy bag emptied 200ml soft stool. No IV access at this time. Call light within reach. Bed low, locked, siderails up x3. Bed alarm on. To monitor.
[2020-05-10] MEDS: MEMANTINE HCL 5 MG TABLET PO SCH (21:45)
[2020-05-10] MEDS ORDERED: cefTRIAXone 1 GM IVPB PREMIX 50 ML IV ONE (22:39)
--- NOTE | 2020-05-10 23:53 | NUR ---
IV RE-INSERTION: Restarted on L.AC 20G. Resumed IV antibiotic at ordered rate. Will observe for any signs of infiltration. Pt tolerated well.
[2020-05-11] VITALS: BP_SYST 105
--- NOTE | 2020-05-11 00:05 | NUR ---
Blood sugar BS checked 95. No indication for insulin per protocol. Pt ate sandwiches for dinner. To monitor.
[2020-05-11] MEDS: cefTRIAXone 1 GM in D5W 50 ML IV SCH ×2 (00:06→21:25)
--- NOTE | 2020-05-11 00:34 | NUR ---
Rounds Pt asleep, no s/s distress noted. VSS. To monitor.
--- NOTE | 2020-05-11 04:30 | NUR ---
Rounds Pt asleep, no s/s distress noted. IV saline lock L. AC 20G clear and patent. Call light within reach. Bed low, locked, siderails upx3, alarm on. Safety maintained. To monitor.
--- NOTE | 2020-05-11 06:34 | NUR ---
Closing notes Pt asleep, easily awakens, no s/s distress noted. BS checked 97. IV saline lock L.AC 20G clear and patent. Pt incontinent of urine. Pericare and linens changed, Z guard applied to coccyx area. Call light within reach. Safety maintained. Bed low, locked, siderails up, alarm on. To endorse to AM nurse. Addendum: 05/11/20 at 0657 by Kiana Mendoza RN Colostomy L. abd intact.
--- NOTE | 2020-05-11 06:34 | NUR ---
Closing notes Pt AAOx4, no s/s distress noted. Pt on O2 via mask O2 sat 99-100%. BS checked 97. IV saline locked L. AC 18G clear and patent. Call light within reach. Safety maintained. To endorse to AM nurse. Addendum: 05/11/20 at 0638 by Kiana Mendoza RN Disregard above notes, error in entry.
--- NOTE | 2020-05-11 07:10 | NUR ---
Opening Notes Patient received sleeping at this time, no signs of distress noted. Patient on court recording monitor with NSR. Patient on room air, breathing evenly and unlabored. Patient has a left AC 20 saline-locked. Safety precautions enforced.
[2020-05-11 07:52] VITALS: BP_SYST 94
--- NOTE | 2020-05-11 10:00 | NUR ---
RN Rounds Patient resting comfortably at this time, no signs of distress noted. Safety precautions enforced.
[2020-05-11] MEDS: MULTIVITAMINS TAB 1 TABLET PO SCH (10:29)
[2020-05-11] MEDS: DOCUSATE SODIUM 100 MG CAPSULE PO SCH (10:29)
[2020-05-11] MEDS: TAMSULOSIN HCL 0.4 MG CAP PO SCH (10:29)
--- NOTE | 2020-05-11 12:40 | NUR ---
RN Rounds Patient eating at this time, no signs of distress noted. Safety precautions enforced.
[2020-05-11 12:56] VITALS: BP_SYST 105
--- NOTE | 2020-05-11 14:00 | NUR ---
RN Rounds Patient resting comfortably at this time, no complaints of pain. Safety precautions enforced.
[2020-05-11 15:27] VITALS: BP_SYST 102
--- NOTE | 2020-05-11 16:00 | NUR ---
RN Rounds Patient resting, watching television with no signs of distress noted. Safety precautions enforced.
--- NOTE | 2020-05-11 18:00 | NUR ---
RN Rounds Patient eating in bed at this time, no signs of distress noted. Safety precautions enforced.
--- NOTE | 2020-05-11 19:23 | NUR ---
Closing Notes Endorsed to shift supervisor rn RN using SBAR format. No signs of distress noted.
[2020-05-11 20:00] VITALS: BP_SYST 90
--- NOTE | 2020-05-11 20:00 | NUR ---
Opening notes Pt AAOx3, VSS, afebrile. No s/s distress noted. IV saline locked L. AC 20G clear and patent. Colostomy bag emptied. Pt snack provided per request. Call light within reach. Bed low, locked, siderails up x3, alarm on. To monitor.
[2020-05-11] MEDS: MEMANTINE HCL 5 MG TABLET PO SCH (21:25)
--- NOTE | 2020-05-11 23:15 | NUR ---
Moved to Rm 128-A Explained to pt reason for the move. Pt has no belongings at bedside.
--- NOTE | 2020-05-12 00:40 | NUR ---
MD chris perez, informed of UC result MDRO urine. Per he will enter Levaquin PO for 7 days.
[2020-05-12 00:45] VITALS: BP_SYST 111
--- NOTE | 2020-05-12 04:15 | NUR ---
Rounds Pt asleep, no s/s distress noted. IV saline locked L. AC 20G clear and patent. Colostomy bag emptied. Pt snack provided per request. Call light within reach. Bed low, locked, siderails up x3, alarm on. To monitor.
--- NOTE | 2020-05-12 06:10 | NUR ---
Closing notes Pt AAOx3, no s/s distress noted. IV saline locked L. AC 20G clear and patent. Colostomy bag emptied. Call light within reach. Bed low, locked, siderails up x3, alarm on. To endorse to AM nurse.
[2020-05-12 06:27] LABS: BASOPHILS # (AUTO) 0.1 K/uL (0.0-0.2); EOSINOPHILS # (AUTO) 0.5 K/uL (0.0-0.4); EOSINOPHILS % (AUTO) 3.7 % (0.0-4.0); HEMATOCRIT 41.7 % (36-54); HEMOGLOBIN 13.9 g/dL (14.0-18.0); LYMPHOCYTES # (AUTO) 3.1 K/uL (1.0-5.5); LYMPHOCYTES % (AUTO) 24.5 % (20.5-51.5); MEAN CORPUSCULAR HEMOGLOBIN 28 pg (27-31); MEAN CORPUSCULAR HGB CONC 33 % (32-36); MEAN CORPUSCULAR VOLUME 85 fL (79.0-98.0); MONOCYTES # (AUTO) 0.6 K/uL (0.0-1.0); MONOCYTES % (AUTO) 4.9 % (1.7-9.3); NEUTROPHILS # (AUTO) 8.3 K/uL (1.8-7.7); NEUTROPHILS % (AUTO) 65.9 % (40.0-70.0); PLATELET COUNT (AUTO) 347 K/uL (130-430); RED BLOOD CELL COUNT(AUTO) 4.94 MIL/uL (4.2-6.2); RED CELL DISTRIBUTION WIDTH 14.6 % (9.0-15.0); WHITE BLOOD COUNT (AUTO) 12.6 K/uL (4.8-10.8)
--- NOTE | 2020-05-12 08:00 | NUR ---
AM notes: Pt AAOx3, Vital sign,afebrile. No s/s distress noted. IV saline locked left AC 20G saline lock.intact and patent. Colostomy bag emptied 200ml of loose dark green. Call light within reach. Bed low, locked, side rails up x3, alarm on.contact isolation for MRDO of urine maintained. will monitor.
[2020-05-12 08:30] VITALS: BP_SYST 99
[2020-05-12] MEDS: DOCUSATE SODIUM 100 MG CAPSULE PO SCH (09:00)
[2020-05-12] MEDS: TAMSULOSIN HCL 0.4 MG CAP PO SCH (09:49)
[2020-05-12] MEDS: MULTIVITAMINS TAB 1 TABLET PO SCH (09:49)
[2020-05-12] MEDS ORDERED: levoFLOXacin 500 MG TABLET PO SCH (10:00)
[2020-05-12 12:21] VITALS: BP_SYST 123
--- NOTE | 2020-05-12 12:30 | NUR ---
blood sugar 106, no insulin coverage needed.
--- NOTE | 2020-05-12 13:23 | NUR ---
Discharge Planning: [facility] faxed pt referral to [facility] (f [phone] p [phone]) DCP to follow up Addendum: 05/12/20 at 1621 by Sherly Hogan DP Patient did not meet LTAC criteria, [facility] faxed pt referral to [facility] ([phone]) patient will go to 106A, DCP arrange transportation with [employer] ([phone]) Will Call. Nurse to call with time of pick up worker. DCP took patient packet to nurse station.
--- NOTE | 2020-05-12 15:59 | NUR ---
Pt accepted at [facility] acute room 106A-ambulance on will call.
[2020-05-12 16:49] VITALS: BP_SYST 114
[2020-05-12 17:42] VITALS: BP_SYST 114
[2020-05-12] MEDS ORDERED: LEVO500T89 PO (18:15)
--- NOTE | 2020-05-12 18:43 | NUR ---
PATIENT STABLE FOR TRANSFER TO [facility]. REPORT GIVEN TO NEELAM MARTINEZ. PHONE # [phone] PT IS GOING TO ROOM 106. PT ASLO AWARE ABOUT THE TRANSFER, LEFT VOICE MSG TO YENIFER ( CHILD) UNABLE TO REACH. COLOSTOMY BAG AT LEFT ABDOMEN EMPTIED AND PULL UP APPLIED TO TRANSPORT. PT IS INCONTINENT OF URINE. NO BELONGINGS NOTED.
--- NOTE | 2020-05-12 19:30 | NUR ---
Opening note Received patient awake, AOx3, resting in bed, no distress and non labored breathing on room air. He is aware he will discharge and is asking what time. I informed at 8pm. Bed is locked in lowest position, bed alarm on and call light w/in reach.
[2020-05-12 20:00] VITALS: BP_SYST 104
[2020-05-12] MEDS: MEMANTINE HCL 5 MG TABLET PO SCH (20:12)
--- NOTE | 2020-05-12 20:49 | NUR ---
ambulance report gave report to ROBERT García from [facility]
--- NOTE | 2020-05-12 20:53 | NUR ---
discharge Copy of records w/ medication reconciliation form and D/C instructions, Exit Care provided to ambulance team. Patient verbalized understanding. MD discussed with patient the results and treatment provided. [facility]. Patient in stable condition, ID band removed. IV catheter removed, intact and dressing applied, no active bleeding. Patient educated on pain management. No belongings.
== END 2020-05-12 20:52 | DRG 640 ==
LOC: SED 20:19 → STU 23:45
PROVIDERS: ADMIT Internal Medicine; ATTEND Internal Medicine
DX: E87.6 Hypokalemia (principal); E43 Unspecified severe protein-calorie malnutrition; N39.0 Urinary tract infection, site not specified; R64 Cachexia; J44.9 Chronic obstructive pulmonary disease, unspecified; J45.909 Unspecified asthma, uncomplicated; F03.90 Unspecified dementia, unspecified severity, without behavioral disturbance, psychotic disturbance, mood disturbance, and anxiety; Z20.828 Contact with and (suspected) exposure to other viral communicable diseases; N28.9 Disorder of kidney and ureter, unspecified; I50.9 Heart failure, unspecified; I11.0 Hypertensive heart disease with heart failure; Z86.73 Personal history of transient ischemic attack (TIA), and cerebral infarction without residual deficits; Z79.899 Other long term (current) drug therapy; Z93.3 Colostomy status; Z79.1 Long term (current) use of non-steroidal anti-inflammatories (NSAID)
CPT/HCPCS: 36415; 80053; 80061; 81000-TC; 82962; 83605; 83735-TC; 84132-TC; 84443-TC; 85025; 85379; 87040-TC; 87081; 87086; 96365; 96367; 99285; A5061; G0378; J0696; J1815; J2001; J3480; J7030; J7050; J7060

== ENCOUNTER 2021-01-29 06:36 | Inpatient (IN) | payer OTHER, MEDICAID, SELFPAY ==
[~2021-01-29] VITALS: Ht 175.3 cm; Wt 87.5 kg
[~2021-01-29 06:36] MED LIST changes: -ALBU2.5V7 INH; -AMIN30LI2 PO; -BISA10SU61 RC; -CAT.1 PO; -GLUC1KIT IM; -HYDR-4272 PO; +HYDR-4274 PO; +LEVO500T89 PO; -NA P133E41 RC; -SSREG SUBCUT
[2021-01-29 06:40] VITALS: BP_SYST 86
[2021-01-29] MEDS ORDERED: NACL 0.9% 1,000 ML IV ONE (07:00)
[2021-01-29 07:12] LABS: BASOPHILS # (AUTO) 0.1 K/uL (0.0-0.2); BASOPHILS % (AUTO) 0.5 % (0.0-2.0); EOSINOPHILS % (AUTO) 0.3 % (0.0-4.0); HEMATOCRIT 48.8 % (36-54); HEMOGLOBIN 16.2 g/dL (14.0-18.0); LYMPHOCYTES # (AUTO) 0.8 K/uL (1.0-5.5); LYMPHOCYTES % (AUTO) 6.8 % (20.5-51.5); MEAN CORPUSCULAR HEMOGLOBIN 29 pg (27-31); MEAN CORPUSCULAR HGB CONC 33 % (32-36); MEAN CORPUSCULAR VOLUME 86 fL (79.0-98.0); MONOCYTES # (AUTO) 0.3 K/uL (0.0-1.0); MONOCYTES % (AUTO) 2.7 % (1.7-9.3); NEUTROPHILS # (AUTO) 10.3 K/uL (1.8-7.7); NEUTROPHILS % (AUTO) 89.7 % (40.0-70.0); PLATELET COUNT (AUTO) 206 K/uL (130-430); RED BLOOD CELL COUNT(AUTO) 5.68 MIL/uL (4.2-6.2); RED CELL DISTRIBUTION WIDTH 14.9 % (9.0-15.0); WHITE BLOOD COUNT (AUTO) 11.5 K/uL (4.8-10.8)
[2021-01-29 07:21] LABS: ANION GAP 11 (5-15); CHLORIDE 104 mmol/L (98-107); CREATININE 1.52 mg/dL (0.55-1.30); GLUCOSE 101 mg/dL (70-99); POTASSIUM 4.4 mmol/L (3.5-5.1); SODIUM SERUM 139 mmol/L (136-145); UREA NITROGEN, BLOOD 29 mg/dL (8-21)
[2021-01-29 07:26] LABS: ALANINE AMINOTRANSFERASE 29 U/L (12-78); ALBUMIN 3.3 g/dL (3.4-4.8); ASPARTATE AMINOTRANSFERASE 23 U/L (10-37); INR 1.1 (0.80-1.20); PROTHROMBIN TIME 11.6 SECS (9.5-12.5)
[2021-01-29 07:33] LABS: BILIRUBIN,URINE 1+ (NEGATIVE); BLOOD, URINE 2+ (NEGATIVE); CLARITY/URINE CLOUDY (CLEAR); COLOR,URINE YELLOW (YELLOW); GLUCOSE,URINE NEGATIVE (NEGATIVE); KETONES,URINE NEGATIVE (NEGATIVE); LEUKOCYTE ESTERASE ,URINE 1+ (NEGATIVE); NITRITE, URINE POSITIVE (NEGATIVE); PROTEIN URINE 1+ (NEGATIVE); UROBILINOGEN,URINE 0.2 (0.2-1.0)
[2021-01-29 07:38] LABS: BACTERIA,URINE MODERATE /HPF (None Seen); RBC,URINE 20-50 /HPF (0-3)
[2021-01-29] MEDS ORDERED: cefTRIAXone 1 GM IVPB PREMIX 50 ML IV ONE (08:30)
[2021-01-29] MEDS ORDERED: NACL 0.9% 1,000 ML IV SCH (09:45)
[2021-01-29] MEDS ORDERED: NS 500 ML IV ONE (10:00)
[2021-01-29 10:11] LABS: CHOLESTEROL 133 mg/dL (<200); HDL CHOLESTEROL 29 mg/dL (>45); LDL CHOLESTEROL 89 mg/dL (<100); TRIGLYCERIDES 105 mg/dL (30-150)
[2021-01-29 10:23] VITALS: BP_SYST 123
[2021-01-29] MEDS ORDERED: MULTIVITAMINS TAB 1 TABLET PO ONE (10:30)
[2021-01-29] MEDS ORDERED: MILK OF MAGNESIA 30 ML UDC PO PRN (10:30)
[2021-01-29] MEDS ORDERED: TAMSULOSIN HCL 0.4 MG CAP PO ONE (10:30)
[2021-01-29] MEDS ORDERED: ACETAMINOPHEN 325 MG TABLET PO PRN (10:30)
[2021-01-29] MEDS ORDERED: CHOLECALCIFEROL (VITAMIN D3) 5,000 UNIT TABLET PO ONE (10:30)
[2021-01-29] MEDS ORDERED: DOCUSATE SODIUM 100 MG CAPSULE PO ONE (10:30)
[2021-01-29] MEDS ORDERED: hydrALAZINE HCL 20 MG/ML VIAL IVP PRN (10:45)
[2021-01-29] MEDS ORDERED: LORazepam 2 MG/ML VIAL IVP PRN (10:45)
[2021-01-29] MEDS ORDERED: ONDANSETRON HCL 4 MG/2 ML VIAL IVP PRN (10:45)
[2021-01-29] MEDS ORDERED: LEVOFLOXACIN IN DEXTROSE 5 % 100 ML IV SCH (11:00)
[2021-01-29] MEDS: NACL 0.9% 1,000 ML IV SCH ×2 (11:32→21:31)
[2021-01-29 13:55] VITALS: BP_SYST 129
[2021-01-29 16:51] VITALS: BP_SYST 110
[2021-01-29 20:00] VITALS: BP_SYST 112
[2021-01-29] MEDS ORDERED: PIPERACILLIN/TAZOBACTAM 3.375 GM/VIAL (ZOSYN) IV ONE (21:15)
[2021-01-29] MEDS: PIPERACILLIN/TAZO 3.375/DEX-IS 50 ML IV SCH (21:22)
[2021-01-29] MEDS: MEMANTINE HCL 5 MG TABLET PO SCH (21:22)
[2021-01-30 00:37] VITALS: BP_SYST 122
[2021-01-30] MEDS: PIPERACILLIN/TAZO 3.375/DEX-IS 50 ML IV SCH ×3 (05:31→21:37)
[2021-01-30 06:15] LABS: BASOPHILS # (AUTO) 0.1 K/uL (0.0-0.2); EOSINOPHILS # (AUTO) 0.1 K/uL (0.0-0.4); EOSINOPHILS % (AUTO) 1.1 % (0.0-4.0); HEMATOCRIT 41.4 % (36-54); HEMOGLOBIN 13.8 g/dL (14.0-18.0); LYMPHOCYTES # (AUTO) 0.9 K/uL (1.0-5.5); MEAN CORPUSCULAR HEMOGLOBIN 29 pg (27-31); MEAN CORPUSCULAR HGB CONC 33 % (32-36); MEAN CORPUSCULAR VOLUME 86 fL (79.0-98.0); MONOCYTES # (AUTO) 0.3 K/uL (0.0-1.0); MONOCYTES % (AUTO) 3.9 % (1.7-9.3); NEUTROPHILS # (AUTO) 5.4 K/uL (1.8-7.7); PLATELET COUNT (AUTO) 157 K/uL (130-430); RED BLOOD CELL COUNT(AUTO) 4.82 MIL/uL (4.2-6.2); RED CELL DISTRIBUTION WIDTH 14.9 % (9.0-15.0); WHITE BLOOD COUNT (AUTO) 6.7 K/uL (4.8-10.8)
[2021-01-30] MEDS: NACL 0.9% 1,000 ML IV SCH (06:30)
[2021-01-30 06:44] LABS: INR 1.1 (0.80-1.20); PROTHROMBIN TIME 11.2 SECS (9.5-12.5)
[2021-01-30] MEDS: ACETAMINOPHEN 325 MG TABLET PO PRN (06:59)
[2021-01-30 07:09] LABS: ALANINE AMINOTRANSFERASE 29 U/L (12-78); ALBUMIN 2.6 g/dL (3.4-4.8); ANION GAP 13 (5-15); ASPARTATE AMINOTRANSFERASE 27 U/L (10-37); CALCIUM 7.9 mg/dL (8.4-11.0); CHLORIDE 105 mmol/L (98-107); CREATININE 1.11 mg/dL (0.55-1.30); GLUCOSE 90 mg/dL (70-99); PHOSPHORUS 2.4 mg/dL (2.7-4.5); SODIUM SERUM 140 mmol/L (136-145); TOTAL BILIRUBIN 0.6 mg/dL (0.0-1.0); UREA NITROGEN, BLOOD 21 mg/dL (8-21)
[2021-01-30 08:00] VITALS: BP_SYST 98
[2021-01-30] MEDS: MULTIVITAMINS TAB 1 TABLET PO SCH (09:41)
[2021-01-30] MEDS: DOCUSATE SODIUM 100 MG CAPSULE PO SCH (09:41)
[2021-01-30] MEDS: CHOLECALCIFEROL (VITAMIN D3) 5,000 UNIT TABLET PO SCH (09:41)
[2021-01-30] MEDS: TAMSULOSIN HCL 0.4 MG CAP PO SCH (09:42)
[2021-01-30 12:00] VITALS: BP_SYST 119
[2021-01-30] MEDS ORDERED: NAPH,MB-DB/K PH,MBDB 250 MG TAB PO ONE (16:30)
[2021-01-30 18:17] VITALS: BP_SYST 138
[2021-01-30 20:00] VITALS: BP_SYST 125
[2021-01-30] MEDS: MEMANTINE HCL 5 MG TABLET PO SCH (21:37)
[2021-01-30] MEDS: NAPH,MB-DB/K PH,MBDB 250 MG TAB PO SCH (21:37)
[2021-01-31] VITALS: BP_SYST 119
[2021-01-31] MEDS: PIPERACILLIN/TAZO 3.375/DEX-IS 50 ML IV SCH ×3 (05:21→22:01)
[2021-01-31] MEDS: ACETAMINOPHEN 325 MG TABLET PO PRN ×2 (06:06→23:46)
[2021-01-31] MEDS: NACL 0.9% 1,000 ML IV SCH ×2 (06:08→22:06)
[2021-01-31 07:35] VITALS: BP_SYST 114
[2021-01-31] MEDS: TAMSULOSIN HCL 0.4 MG CAP PO SCH (08:54)
[2021-01-31] MEDS: CHOLECALCIFEROL (VITAMIN D3) 5,000 UNIT TABLET PO SCH (08:54)
[2021-01-31] MEDS: DOCUSATE SODIUM 100 MG CAPSULE PO SCH (08:54)
[2021-01-31] MEDS: MULTIVITAMINS TAB 1 TABLET PO SCH (08:54)
[2021-01-31] MEDS: NAPH,MB-DB/K PH,MBDB 250 MG TAB PO SCH ×3 (08:54→22:01)
[2021-01-31] MEDS: ASPIRIN 81 MG TABLET(ECOTRIN) PO SCH (08:54)
[2021-01-31 12:11] VITALS: BP_SYST 95
[2021-01-31 16:14] VITALS: BP_SYST 97
[2021-01-31 20:00] VITALS: BP_SYST 115
[2021-01-31] MEDS: MEMANTINE HCL 5 MG TABLET PO SCH (22:01)
[2021-02-01] VITALS: BP_SYST 107
[2021-02-01] MEDS: PIPERACILLIN/TAZO 3.375/DEX-IS 50 ML IV SCH ×2 (06:25→13:16)
[2021-02-01 06:43] LABS: ALANINE AMINOTRANSFERASE 29 U/L (12-78); ALBUMIN 2.7 g/dL (3.4-4.8); ANION GAP 9 (5-15); ASPARTATE AMINOTRANSFERASE 26 U/L (10-37); CALCIUM 8.3 mg/dL (8.4-11.0); CHLORIDE 109 mmol/L (98-107); GLUCOSE 81 mg/dL (70-99); PHOSPHORUS 3.6 mg/dL (2.7-4.5); POTASSIUM 3.9 mmol/L (3.5-5.1); SODIUM SERUM 144 mmol/L (136-145); TOTAL BILIRUBIN 0.4 mg/dL (0.0-1.0); UREA NITROGEN, BLOOD 17 mg/dL (8-21)
[2021-02-01 08:00] VITALS: BP_SYST 115
[2021-02-01 08:05] LABS: BASOPHILS # (AUTO) 0.1 K/uL (0.0-0.2); BASOPHILS % (AUTO) 1.1 % (0.0-2.0); EOSINOPHILS # (AUTO) 0.2 K/uL (0.0-0.4); EOSINOPHILS % (AUTO) 3.3 % (0.0-4.0); HEMATOCRIT 41.4 % (36-54); HEMOGLOBIN 13.6 g/dL (14.0-18.0); LYMPHOCYTES # (AUTO) 1.6 K/uL (1.0-5.5); LYMPHOCYTES % (AUTO) 24.1 % (20.5-51.5); MEAN CORPUSCULAR HEMOGLOBIN 28 pg (27-31); MEAN CORPUSCULAR HGB CONC 33 % (32-36); MEAN CORPUSCULAR VOLUME 87 fL (79.0-98.0); MONOCYTES # (AUTO) 0.3 K/uL (0.0-1.0); MONOCYTES % (AUTO) 4.6 % (1.7-9.3); NEUTROPHILS # (AUTO) 4.4 K/uL (1.8-7.7); NEUTROPHILS % (AUTO) 66.9 % (40.0-70.0); PLATELET COUNT (AUTO) 176 K/uL (130-430); RED BLOOD CELL COUNT(AUTO) 4.79 MIL/uL (4.2-6.2); WHITE BLOOD COUNT (AUTO) 6.6 K/uL (4.8-10.8)
[2021-02-01] MEDS: DOCUSATE SODIUM 100 MG CAPSULE PO SCH (09:00)
[2021-02-01] MEDS: TAMSULOSIN HCL 0.4 MG CAP PO SCH (09:01)
[2021-02-01] MEDS: MULTIVITAMINS TAB 1 TABLET PO SCH (09:01)
[2021-02-01] MEDS: ASPIRIN 81 MG TABLET(ECOTRIN) PO SCH (09:01)
[2021-02-01] MEDS: NAPH,MB-DB/K PH,MBDB 250 MG TAB PO SCH (09:01)
[2021-02-01] MEDS: CHOLECALCIFEROL (VITAMIN D3) 5,000 UNIT TABLET PO SCH (09:01)
[2021-02-01] MEDS: NACL 0.9% 1,000 ML IV SCH ×2 (11:30→13:15)
[2021-02-01 12:15] VITALS: BP_SYST 110
[2021-02-01 15:19] VITALS: BP_SYST 110
[2021-02-01 17:15] VITALS: BP_SYST 109
== END 2021-02-01 17:06 | DRG 871 ==
LOC: SED 06:36 → STU 09:36
PROVIDERS: ADMIT Internal Medicine; ATTEND Internal Medicine
DX: A41.9 Sepsis, unspecified organism (principal); R65.21 Severe sepsis with septic shock; E43 Unspecified severe protein-calorie malnutrition; I13.0 Hypertensive heart and chronic kidney disease with heart failure and stage 1 through stage 4 chronic kidney disease, or unspecified chronic kidney disease; N17.9 Acute kidney failure, unspecified; N12 Tubulo-interstitial nephritis, not specified as acute or chronic; I50.32 Chronic diastolic (congestive) heart failure; N18.9 Chronic kidney disease, unspecified; E11.22 Type 2 diabetes mellitus with diabetic chronic kidney disease; E78.5 Hyperlipidemia, unspecified; G89.29 Other chronic pain; F03.90 Unspecified dementia, unspecified severity, without behavioral disturbance, psychotic disturbance, mood disturbance, and anxiety; F17.210 Nicotine dependence, cigarettes, uncomplicated; Z20.822 Contact with and (suspected) exposure to COVID-19; I48.0 Paroxysmal atrial fibrillation; M47.896 Other spondylosis, lumbar region; J44.9 Chronic obstructive pulmonary disease, unspecified; K21.9 Gastro-esophageal reflux disease without esophagitis; N40.0 Benign prostatic hyperplasia without lower urinary tract symptoms; Z86.73 Personal history of transient ischemic attack (TIA), and cerebral infarction without residual deficits; Z93.3 Colostomy status; Z79.899 Other long term (current) drug therapy; Z68.28 Body mass index [BMI] 28.0-28.9, adult
CPT/HCPCS: 36415; 71045; 72131; 76376; 76770; 80053; 80061; 81000; 82043; 82570; 83605; 83735; 83880; 84100; 84302; 84443; 84484; 85025; 85610-TC; 85730-TC; 87040-TC; 87081; 87086; 93306; 96361; 96365; 97110-GP; 97116-GP; 97530-GP; 99285; G0378; J0696; J1956; J2543